=== PATIENT | male | born 1980 | race Caucasian/White ===

== ENCOUNTER 2023-05-25 22:09 | Emergency (ER) | payer OTHER ==
[~2023-05-25] VITALS: Ht 182.9 cm; Wt 96.0 kg
[2023-05-25 22:54] VITALS: O2SAT 97
[2023-05-26] MEDS: IBUPROFEN 600MG TABLET PO ONE (01:39)
[2023-05-26 02:39] VITALS: BP 130/79; PULSE 61; RESP 18; TEMP 97.8
== END 2023-05-26 01:43 | disposition home or self-care (01) ==
LOC: ER 22:09
DX: S90.122A Contusion of left lesser toe(s) without damage to nail, initial encounter (principal); E11.9 Type 2 diabetes mellitus without complications; W19.XXXA Unspecified fall, initial encounter; Y93.89 Activity, other specified; Y92.89 Other specified places as the place of occurrence of the external cause; Y99.8 Other external cause status
CPT/HCPCS: 73630; 99283